=== PATIENT | female | born 1950 | race Caucasian/White ===

== ENCOUNTER → 2020-07-06 | Outpatient (CLI) | payer OTHER ==
--- NOTE | 2020-07-06 09:29 | RAD ---
EXAM DESCRIPTION: Shoulder,Left 2 or More Views CLINICAL HISTORY: SHOULDER PAIN LEFT COMPARISON: None Available. TECHNIQUE: Three x-ray views of the left shoulder. FINDINGS: There is adequate internal and external rotation. Normal glenohumeral alignment on transscapular Y view. Calcification in the region of the left axilla could be calcified node. There is no fracture or dislocation. There are no significant degenerative changes observed. AC joint appears intact. No focal bone lesion. IMPRESSION: Negative for fracture or dislocation. Electronically signed by: Ivan Ramírez MD 07/06/2020 9:28 AM CDT
== END ==
LOC: RAD 08:51
PROVIDERS: ATTEND Orthopaedic Surgery
DX: M25.512 Pain in left shoulder (principal)

== ENCOUNTER → 2020-09-04 | Outpatient (CLI) | payer OTHER ==
--- NOTE | 2020-09-04 11:47 | RAD ---
EXAM DESCRIPTION: Ankle,Right 3 Views CLINICAL HISTORY: 70 years, Female, PAIN IN ANKLE JOINT COMPARISON: None. TECHNIQUE: X-ray three-view right ankle FINDINGS: There is no bone, joint, or soft tissue abnormality. IMPRESSION: 1. Normal Electronically signed by: Papo Araujo MD 09/04/2020 11:46 AM [facility]
--- NOTE | 2020-09-04 11:48 | RAD ---
EXAM DESCRIPTION: Foot,Right 3 Views CLINICAL HISTORY: 70 years, Female, PAIN IN RIGHT FOOT COMPARISON: None TECHNIQUE: X-ray three-view right foot FINDINGS: There is no bone, joint, or soft tissue abnormality observed. There is no radiopaque foreign body. IMPRESSION: Normal Electronically signed by: Papo Araujo MD 09/04/2020 11:47 AM [facility]
--- NOTE | 2020-09-04 11:48 | RAD ---
EXAM DESCRIPTION: Ankle,Left 3 Views CLINICAL HISTORY: 70 years, Female, PAIN IN ANKLE JOINT COMPARISON: None. TECHNIQUE: X-ray three-view left ankle FINDINGS: There is no bone, joint, or soft tissue abnormality. IMPRESSION: 1. Normal Electronically signed by: Papo Araujo MD 09/04/2020 11:46 AM [facility]
--- NOTE | 2020-09-04 12:31 | RAD ---
EXAM DESCRIPTION: Foot,Left 3 Views CLINICAL HISTORY: 70 years, Female, PAIN IN LEFT FOOT COMPARISON: None TECHNIQUE: X-ray three-view left foot FINDINGS: There is no bone, joint, or soft tissue abnormality observed. There is no radiopaque foreign body. IMPRESSION: Normal Electronically signed by: Papo Araujo MD 09/04/2020 12:29 PM [facility]
== END ==
LOC: RAD 08:53
PROVIDERS: ATTEND Orthopaedic Surgery
DX: M25.571 Pain in right ankle and joints of right foot (principal); M25.572 Pain in left ankle and joints of left foot; M79.671 Pain in right foot; M79.672 Pain in left foot

== ENCOUNTER → 2020-09-14 | Outpatient (CLI) | payer OTHER ==
--- NOTE | 2020-09-14 16:13 | MRI ---
EXAM DESCRIPTION: Lumbar Spine w/o Contrast : Magnetic Resonance Imaging. CLINICAL HISTORY: RADICULOPATHY COMPARISON: LUMBAR TECHNIQUE: Multiplanar, multiple standard sequences, non contrast MRI, lumbar spine. FINDINGS: L5-S1: The disc is well visualized on axial T2 series 501, image 3. Normal signal in the disc with disc space preserved. No borderline. Flavum ligaments and bilateral facet joints (canal elements) are unremarkable. Mild to moderate right foraminal narrowing; left foramen and canal are patent. L4-L5: Disc space loss and disc desiccation. Posterior broad-based bulge. Minimal hypertrophic changes in the canal elements. Mild canal narrowing. Minimal narrowing of the right foramen with left foramen patent. L3-L4: disc normal signal and disc space maintained. Minimal hypertrophy of the facet ligaments. Canal and foramina are patent. L2-L3: Normal signal of the disc with disc space maintained. Minimal hypertrophy of the posterior flavum ligaments. Canal and foramina are patent. L1-L2: Normal signal of the disc with disc space maintained. Minimal hypertrophy of the posterior flavum ligaments. Canal and foramina are patent. Conus terminates just above the disc space. T12-L1: Normal signal of the disc with disc space maintained. Canal elements are unremarkable. Foramina and canal are patent. No significant scoliosis. Paravertebral soft tissues are unremarkable.. Distal cord normal signal and caliber. Normal marrow signal in the remaining vertebral bodies and the posterior elements. Vertebral bodies are not compressed at any level. Perineural cyst abutting the right S1 nerve root above the foramen. IMPRESSION: 1. Minimal hypertrophic changes in the posterior flavum ligaments at several levels. Minimal disc desiccation at several levels but no significant disc bulging and no protrusion. 2. Bony narrowing mild to moderate right foramen at L5-S1. Minimal disc space loss and disc desiccation at L4-L5. Minimal hypertrophic changes in the canal elements. Perineural cyst abutting the right S1 nerve root above the foramen. 3. Please refer to FINDINGS for discussion of results at specific disc space levels. Electronically signed by: Markel Quevedo MD 09/14/2020 4:11 PM [facility]
== END ==
LOC: MRI 09:43
PROVIDERS: ATTEND Orthopaedic Surgery
DX: M51.16 Intervertebral disc disorders with radiculopathy, lumbar region (principal); M48.07 Spinal stenosis, lumbosacral region; G96.191 Perineural cyst